=== PATIENT | male | born 1985 | race African-American/Black ===

== ENCOUNTER 2024-03-13 00:50 | Emergency (ER) | payer SELFPAY ==
[2024-03-13] VITALS (7 sets, daily range): BP systolic 123–133; BP diastolic 80–86; PULSE 82–100; RESP 18–23; TEMP 36.7; O2SAT 97–100
--- NOTE | ~2024-03-13 | XR_ITS ---
Portable chest x-ray Comparison: None Clinical History: Shortness of breath Findings: Lungs are clear, without focal consolidation or pleural effusion. Cardiomediastinal silho uette is unremarkable. Bones and soft tissues are unremarkable. Impression: Normal chest. Reviewed, dictated and finalized at [facility]. Impression: Normal chest.
--- NOTE | 2024-03-13 00:49 | ECG_ITS ---
Test Date: 2024-03-13 00:49:32 Measurements Intervals [place] Rate: 90 P: 55 DE: 191 QRS: 59 QRSD: 84 T: 38 QT: 337 QTc: 413 Interpretive Statements SINUS RHYTHM POSSIBLE LEFT ATRIAL ENLARGEMENT NONSPECIFIC ST-T WAVE ABNORMALITY- INFERIOR LEADS BASELINE ARTIFACT- I, II, AVR, AVL, V1-V3 BORDERLINE ECG No previous ECG available for comparison Electronically Signed On 03-13-2024 11:08:06 CDT by Blake Plunkett D.O.
[2024-03-13 01:04] LABS: Hematocrit 40.1 % (42.0-52.0); Hemoglobin 13.9 g/dL (14.0-18.0); Mean Corpuscular HGB Conc 34.7 g/dl (32-36); Mean Corpuscular Hemoglobin 31.4 pg (26-34); Mean Corpuscular Volume 90.5 fl (80-100); Mean Platelet Volume 9.6 fl (7.4-10.4); Platelet Count Result 197 k/mm3 (150-375); Red Blood Count 4.43 M/mm3 (4.6-6.20); Red Cell Distribution Width 12.4 % (11.5-14.5); White Blood Count 12.9 K/mm3 (4.5-10.0)
[2024-03-13 01:17] LABS: Alanine Aminotransferase 25 U/L (6-50); Alkaline Phosphatase 120 U/L (38-126); Anion Gap 7 mmol/L (4-12); Aspartate Amino Transferase 31 U/L (17-59); Bilirubin,Total 0.7 mg/dL (0.2-1.3); Blood Urea Nitrogen 11 mg/dL (9-20); Calcium 8.7 mg/dL (8.4-10.2); Carbon Dioxide 23 mmol/L (22-30); Chloride 106 mmol/L (98-107); Estimated CRCL calculation 117 ml/min; Estimated Glomerular Filt Rate > 60; Glucose 98 mg/dL (65-110); Potassium 3.4 mmol/L (3.4-5.0); Sodium 136 mmol/L (137-145)
[2024-03-13 01:44] LABS: Basophils Absolute Manual 0.12 K/mm3 (0.0-0.1); Basophils Percent Manual 1 % (0-1); Eosinophils Absolute Manual 1.03 K/mm3 (0.02-0.50); Eosinophils Percent Manual 8 % (0-4); Large Platelets Present; Lymphocytes Absolute Manual 4.25 K/mm3 (1.1-4.5); Lymphocytes Percent Manual 33 % (18-44); Neutrophils Percent Manual 56 % (46-73); Platelet Estimate Adequate (Adequate); Promyelocytes Percent 2 %; Smudge Cells PRESENT; Total Cells Counted 100
[2024-03-13 01:45] LABS: Platelet Clumps Present; Schistocytes None Seen
--- NOTE | 2024-03-13 02:04 | ED.SOB ---
HPI - SOB/Dyspnea General Chief Complaint: Shortness of Breath/Dyspnea Stated Complaint: sob Time Seen by Provider: 03/13/24 01:36 History of Present Illness HPI Narrative: 39-year-old male with a past medical history significant for asthma presenting to the emergency department via EMS for concerns of respiratory distress and shortness of breath. Patient was outside playing football today and did not have his rescue inhaler with him. He states he is visiting from out of town. He had sudden onset worsening discal TM breathing and required EMS transport. EMS provided him albuterol which did improve his symptoms. On my initial encounter patient is resting comfortably in the stretcher but does have very coarse breath sounds. He states he feels slightly better but not to his baseline self. Otherwise was in his normal state of health and has not had a recent injuries or illnesses. Denies any chest pain, nausea, vomiting, abdominal pain, back pain, fever, chills. Related Data Allergies Allergy/AdvReac Type Severity Reaction Status Date / Time acetaminophen [From Vicodin] Allergy Unknown Verified 03/13/24 02:42 egg Allergy Unknown Verified 03/13/24 02:42 hydrocodone [From Vicodin] Allergy Unknown Verified 03/13/24 02:42 Review of Systems Review of Systems: As reviewed above in HPI Exam Narrative: GENERAL: [Well-appearing, well-nourished, and in no acute distress.] HEAD: [Normocephalic, atraumatic.] EYES: [PERRLA and EOMI.] ENT: Nares clear, no rhinorrhea or epistaxis. Mucous membranes moist. NECK: Supple. CHEST: Very coarse breath sounds bilaterally, no significant respiratory distress, conversing in full sentences. Good air entry but expiratory wheezing appreciated. HEART: [Regular rate and rhythm]. No murmur heard. [Normal peripheral pulses.] ABDOMEN: [Soft, nondistended], [nontender], [No rigidity or guarding] EXTREMITIES: Normal range of motion. [No edema.] SKIN: Warm, dry, no rash. NEURO: [No focal deficits]. Alert and oriented [x3.] PSYCH: [Normal mood and affect.] Course Vital Signs Vital signs: Vital Signs Temperature 36.7 C 03/13/24 00:44 Pulse Rate 82 03/13/24 00:44 Respiratory Rate 18 03/13/24 00:44 Blood Pressure 133/86 03/13/24 00:44 Pulse Oximetry 97 03/13/24 00:44 Oxygen Delivery Room Air 03/13/24 00:44 Temperature 36.7 C 03/13/24 00:44 Pulse Rate 85 03/13/24 05:47 Respiratory Rate 18 03/13/24 05:47 Blood Pressure 132/80 03/13/24 05:47 Pulse Oximetry 98 03/13/24 05:47 Oxygen Delivery Room Air 03/13/24 00:51 MDM - SOB/Dyspnea MDM Narrative Medical decision making narrative: 39-year-old male with a history of asthma presenting to the emergency department for an asthma exacerbation. He has very coarse breath sounds with end-expiratory wheezing. He is saturating well on room air. EMS was called as he was having sudden onset respiratory distress while playing football. He was provided albuterol which did improve some of the wheezing and his mentation. Patient states that he has asthma but does not have his inhaler with him. Differential diagnosis includes asthma exacerbation, pneumonia, less likely pneumothorax but he was playing football and that could have been a potential injury. Workup including a CBC, CMP, chest x-ray, EKG. He was given nebulizer treatments including albuterol, ipratropium, IV treatments of magnesium, Solu-Medrol and a fluid bolus. Patient was re-evaluated after treatments. He was on continuous pulse ox reading monitor tech with reassuring vital signs. Patient had symptomatic improvement after treatments. Vital signs remained stable. No longer in respiratory distress. Much more appreciable air movement on auscultation with minimal wheezing now. He has a mild leukocytosis of 12.9 which is likely reactive to the acute process from his asthma exacerbation. Electrolytes within normal limits, normal renal and hepatic function
[2024-03-13] MEDS: ALBUTEROL SULFATE NEB 2.5 MG/3 ML INH 5 MG INHALATION ×3 (02:15→02:45)
[2024-03-13] MEDS: IPRATROPIUM BR 0.02% INH SOLN 0.5 MG/2.5 ML VIAL INHALATION ×3 (02:15→02:45)
[2024-03-13] MEDS: SODIUM CHLORIDE 0.9% IV 1,000 ML 999 ML IV CONT (02:43)
[2024-03-13] MEDS: methylPREDNISolone SOD SUCC 125 MG VIAL IV PUSH (02:44)
[2024-03-13] MEDS: MAGNESIUM SULF 2 GM/WATER 50ML 2 GM/50 ML BAG IVPB (02:47)
== END 2024-03-13 06:29 | disposition home or self-care (01) ==
PROVIDERS: Emergency Provider Student in an Organized Health Care Education/Training Program
DX: J45.901 Unspecified asthma with (acute) exacerbation (principal); R94.31 Abnormal electrocardiogram [ECG] [EKG]
CPT/HCPCS: 36415; 71045; 80053; 85025; 93005; 94640; 96365; 96375; 99284; J2919; J3475; J7030